=== PATIENT | female | born 1925 | race Caucasian/White ===

== ENCOUNTER 2016-08-13 18:33 | Inpatient (IN) | payer OTHER, BC ==
[~2016-08-13] VITALS: Ht 149.9 cm; Wt 46.8 kg
[~2016-08-13 18:33] MED LIST: Coreg PO; DIOVAN80 MG PO; FORTAMET500 M1 PO; LOVENOX30 MG/0.3 SC; SENOKOT S,PE1 TABLET PO; THERAGRAN1 TABLET PO; Vicodin,Lortab 5/500 PO; Zocor PO; [UNRECOGNIZED DRUG - REMARK]; [UNRECOGNIZED DRUG - REMARK]; [UNRECOGNIZED DRUG - REMARK]
[2016-08-13 19:24] LABS: HEMATOCRIT 39.6 % (36.0-46.0); MCHC 34.3 G/DL (30.0-36.0); MCV 87.4 FL (83-99); PLATELET COUNT 220 K/uL (156-360); RBC DIS.WIDTH-CV 12.7 % (11.8-14.6); RBC DIS.WIDTH-SD 39.8 % (39-53); RED BLOOD COUNT 4.53 M/uL (3.80-5.20); WHITE BLOOD COUNT 6.9 K/uL (4.1-10.2)
[2016-08-13 19:34] LABS: CHLORIDE 107 mEq/L (99-109); POTASSIUM 4.2 mEq/L (3.7-5.4); SODIUM 140 mEq/L (136-147)
[2016-08-13 19:35] LABS: GLUCOSE 156 mg/dL (70-99)
[2016-08-13 19:37] LABS: ANION GAP 12 MEQ/L (2-14)
[2016-08-13 19:39] LABS: GFR ESTIMATE (CALCULATED) > 59 mL/min/
[2016-08-13 19:40] LABS: UREA NITROGEN (BUN) 12 mg/dL (9-23)
[2016-08-13 19:45] LABS: TROP-I INTERPRETATION NEGATIVE; TROPONIN-I 0.01 ng/mL (0.0-0.30)
[2016-08-13 20:16] LABS: ADD MIUA? YES; BILIRUBIN NEGATIVE; BLOOD SMALL; COLOR YELLOW ((YELLOW)); GLUCOSE (STRIP) NEGATIVE; KETONES NEGATIVE; LEUKOCYTES LARGE; NITRITE NEGATIVE; PROTEIN (STRIP) NEGATIVE; UROBILINOGEN 0.2 MG/DL (0.2-1.0)
[2016-08-13 21:07] LABS: BACTERIA 1+; CASTS NONE SEEN /LPF; CRYSTALS NONE SEEN; EPITHELIAL CELLS 1+; MUCUS NONE SEEN; UCUL ADDED? NO; WHITE BLOOD CELLS 30-40 /HPF (0-5)
[2016-08-13] MEDS ORDERED: COREG12.5 M1 PO (22:52)
[2016-08-13] MEDS ORDERED: LOSARTAN POTASS25 MG PO (22:52)
[2016-08-13] MEDS ORDERED: PROLIA60 MG/1 ML SC (22:52)
[2016-08-13] MEDS ORDERED: ZOCOR40 MG PO (22:52)
[2016-08-13] MEDS ORDERED: LO-DOSE ASPIRIN81 M2 PO (22:52)
[2016-08-13] MEDS ORDERED: MIRTAZAPINE15 M1 PO (22:52)
[2016-08-14 01:33] LABS: HDL CHOLESTEROL 67 MG/DL (Desirable>=50); LDL CHOLESTEROL 87 mg/dL (Desirable<100); NON-HDL CHOLESTEROL 102 mg/dL (Desirable<160); TOTAL CHOLESTEROL 169 mg/dL (Desirable<200); TRIGLYCERIDES 73 MG/DL (Normal: <150)
[2016-08-14 06:33] LABS: HEMATOCRIT 34.5 % (36.0-46.0); MCH 30.1 PG (29.0-34.0); MCHC 34.2 G/DL (30.0-36.0); MEAN PLAT.VOLUME 9.3 uM^3 (9.5-12.4); PLATELET COUNT 186 K/uL (156-360); RBC DIS.WIDTH-CV 12.8 % (11.8-14.6); RBC DIS.WIDTH-SD 40.3 % (39-53); RED BLOOD COUNT 3.92 M/uL (3.80-5.20); WHITE BLOOD COUNT 6.4 K/uL (4.1-10.2)
[2016-08-14 06:43] LABS: CHLORIDE 112 mEq/L (99-109); POTASSIUM 3.4 mEq/L (3.7-5.4); SODIUM 140 mEq/L (136-147)
[2016-08-14 06:46] LABS: GLUCOSE 127 mg/dL (70-99)
[2016-08-14 06:47] LABS: ANION GAP 10 MEQ/L (2-14)
[2016-08-14 06:48] LABS: TOTAL BILIRUBIN 0.6 mg/dL (0.0-1.0)
[2016-08-14 06:49] LABS: ALKALINE PHOSPHATASE 49 IU/L (3-129); GFR ESTIMATE (CALCULATED) > 59 mL/min/
[2016-08-14 06:50] LABS: UREA NITROGEN (BUN) 11 mg/dL (9-23)
[2016-08-14 07:00] LABS: Estimated Average Glucose 128 mg/dL (70-123); HEMOGLOBIN A1c (GLYCOHEMOGLOB) 6.1 % HGB (Below 5.7)
[2016-08-14 15:00] VITALS: BP 146/78
[2016-08-14 20:00] VITALS: BP 173/67
[2016-08-14 23:35] VITALS: BP 163/75
[2016-08-15 04:00] VITALS: BP 147/76
[2016-08-15 08:16] VITALS: BP 128/78
[2016-08-15 12:00] VITALS: BP 170/76
[2016-08-15 12:00] LABS: ANION GAP 13 MEQ/L (2-14); CHLORIDE 106 MEQ/L (99-109); GFR ESTIMATE (CALCULATED) > 59 mL/min/; GLUCOSE 100 mg/dL (70-99); POTASSIUM 3.4 MEQ/L (3.7-5.4); SAMPLE HEMOLYSIS CHECK 0; SAMPLE ICTERIC CHECK 0; SAMPLE LIPEMIA CHECK 0; SODIUM 140 MEQ/L (136-147); UREA NITROGEN (BUN) 9 mg/dL (9-23)
[2016-08-15 16:00] VITALS: BP 129/90
[2016-08-15 20:26] VITALS: BP 197/70
[2016-08-15 21:33] LABS: POINT-OF-CARE METER ID UU14174225
[2016-08-16] VITALS (7 sets, daily range): BP systolic 158–190; BP diastolic 65–80
[2016-08-16 05:33] LABS: HEMATOCRIT 32.7 % (36.0-46.0); MCH 29.3 PG (29.0-34.0); MCHC 33.6 G/DL (30.0-36.0); MCV 87.2 FL (83-99); MEAN PLAT.VOLUME 10.9 uM^3 (9.5-12.4); PLATELET COUNT 165 K/uL (156-360); RBC DIS.WIDTH-CV 12.6 % (11.8-14.6); RBC DIS.WIDTH-SD 40.7 % (39-53); RED BLOOD COUNT 3.75 M/uL (3.80-5.20); WHITE BLOOD COUNT 4.9 K/uL (4.1-10.2)
[2016-08-16 05:54] LABS: CHLORIDE 106 MEQ/L (99-109); GFR ESTIMATE (CALCULATED) > 59 mL/min/; GLUCOSE 111 mg/dL (70-99); POTASSIUM 3.1 MEQ/L (3.7-5.4); SAMPLE HEMOLYSIS CHECK 0; SODIUM 137 MEQ/L (136-147); UREA NITROGEN (BUN) 10 mg/dL (9-23)
[2016-08-16 05:55] LABS: ANION GAP 7 MEQ/L (2-14); SAMPLE ICTERIC CHECK 0; SAMPLE LIPEMIA CHECK 0
[2016-08-16 21:14] LABS: POINT-OF-CARE METER ID UU14174225
[2016-08-17 04:11] VITALS: BP 152/76
[2016-08-17 06:41] LABS: HEMATOCRIT 33.6 % (36.0-46.0); MCH 29.6 PG (29.0-34.0); MCHC 33.9 G/DL (30.0-36.0); MCV 87.3 FL (83-99); MEAN PLAT.VOLUME 10.7 uM^3 (9.5-12.4); PLATELET COUNT 172 K/uL (156-360); RBC DIS.WIDTH-CV 12.7 % (11.8-14.6); RBC DIS.WIDTH-SD 40.8 % (39-53); RED BLOOD COUNT 3.85 M/uL (3.80-5.20)
[2016-08-17 06:47] LABS: WHITE BLOOD COUNT 7.3 K/uL (4.1-10.2)
[2016-08-17 06:57] LABS: ANION GAP 6 MEQ/L (2-14); CHLORIDE 106 MEQ/L (99-109); GFR ESTIMATE (CALCULATED) > 59 mL/min/; GLUCOSE 131 mg/dL (70-99); POTASSIUM 3.7 MEQ/L (3.7-5.4); SAMPLE HEMOLYSIS CHECK 0; SAMPLE ICTERIC CHECK 0; SAMPLE LIPEMIA CHECK 0; SODIUM 136 MEQ/L (136-147); UREA NITROGEN (BUN) 8 mg/dL (9-23)
[2016-08-17 07:40] VITALS: BP 118/61
[2016-08-17 07:54] LABS: POINT-OF-CARE METER ID UU14174225
[2016-08-17 10:53] VITALS: BP 106/61
[2016-08-17 15:25] VITALS: BP 113/64
[2016-08-17 21:25] VITALS: BP 156/61
[2016-08-18] VITALS: BP 132/68
[2016-08-18 04:00] VITALS: BP 159/74
[2016-08-18 08:08] VITALS: BP 152/76
[2016-08-18 11:35] VITALS: BP 170/69
[2016-08-18 16:00] VITALS: BP 119/61
[2016-08-18 16:37] VITALS: BP 179/73
== END 2016-08-18 16:40 | DRG 689 ==
LOC: EME 18:33 → 5SOUTH 23:17 → EDOF 23:17 → 5SOUTH 08-14 14:18
PROVIDERS: Hospitalist; Internal Medicine; Physician Assistant Medical
DX: N39.0 Urinary tract infection, site not specified (principal); G93.49 Other encephalopathy; G93.41 Metabolic encephalopathy; I67.4 Hypertensive encephalopathy; R13.12 Dysphagia, oropharyngeal phase; G45.9 Transient cerebral ischemic attack, unspecified; E87.6 Hypokalemia; E86.0 Dehydration; I10 Essential (primary) hypertension; I16.0 Hypertensive urgency; E78.5 Hyperlipidemia, unspecified; E11.9 Type 2 diabetes mellitus without complications; I25.10 Atherosclerotic heart disease of native coronary artery without angina pectoris; Z95.5 Presence of coronary angioplasty implant and graft; I65.29 Occlusion and stenosis of unspecified carotid artery; R47.01 Aphasia; M19.90 Unspecified osteoarthritis, unspecified site
CPT/HCPCS: 70450; 70551; 71010; 71020; 74230; 80048; 80053; 80061; 81003; 82948; 83036; 84484; 85027; 92526 GN; 92610 GN; 92611 GN; 93005; 93880; 99281; 99285; J0696; J1644; J1815; J2060; J2405; J3475; J3480; J7030; J7050